=== PATIENT | male | born 1985 | race Caucasian/White ===

== ENCOUNTER → 2023-10-31 06:31 | Outpatient (CLI) | payer OTHER, SELFPAY ==
--- NOTE | 2023-10-31 06:32 | DI.US.S_ITS ---
PROCEDURE: US SCROTUM INDICATIONS: HIGH SERUM ESTRADIOL TECHNIQUE: Real-time scanning was performed of the scrotum and testicles, with image documentation. Color and pulse Doppler interrogation was performed of both testicles. COMPARISON: None. FINDINGS: Right: Testicle is normal in size at 4.9 x 3 x 2.1 cm, and homogenous in echotexture. Epididymis is normal in overall size and morphology. Tiny anechoic cyst in the head of the epididymis measuring 0.2 cm. Trace hydrocele No varicoceles. Overlying scrotal skin is normal in thickness. Left: Testicle is normal in size at 4.8 x 3.2 x 2.1 cm, and homogeneous in echotexture. Epididymis is normal in overall size and morphology. Anechoic cyst in the head of the epididymis measuring 0.4 cm. No hydrocele. Probable varicoceles. Overlying scrotal skin is normal in thickness. Doppler: Color and pulse Doppler demonstrate normal and symmetric arterial flow in both testicles. IMPRESSION: 1. No testicular mass. 2. No hyperemia to suggest epididymitis. No torsion. 3. Trace right hydrocele. Probable left varicocele. 4. Tiny benign epididymal head cysts bilaterally. Dictated by: Davie Peoples M.D. on 10/31/2023 at 8:08 Approved by: Davie Peoples M.D. on 10/31/2023 at 8:12
== END ==
PROVIDERS: PCP Family Medicine; Referring Provider Family Medicine; Visit Provider Family Medicine
DX: R79.89 Other specified abnormal findings of blood chemistry (principal)
CPT/HCPCS: 76870

== ENCOUNTER → 2023-11-03 16:24 | Outpatient (CLI) | payer OTHER, SELFPAY ==
[2023-11-03 17:43] LABS: TSH w/ Reflex to FT4 1.88 uIU/mL (0.47-4.68)
[2023-11-03 17:57] LABS: Estradiol, Total 33.1 pg/mL
[2023-11-03 18:09] LABS: Prolactin 12.8 ng/mL (3.7-17.9)
== END ==
PROVIDERS: PCP Family Medicine; Referring Provider Family Medicine; Visit Provider Family Medicine
DX: R79.89 Other specified abnormal findings of blood chemistry (principal)
CPT/HCPCS: 36415; 82670; 84146; 84443; 84702